=== PATIENT | female | born 1970 | race Caucasian/White ===

== ENCOUNTER 2016-06-11 16:45 | Inpatient (IN) | payer OTHER ==
[~2016-06-11] VITALS: Ht 157.5 cm; Wt 90.9 kg
[2016-06-11 17:15] VITALS: Ht 157.5 cm; Wt 90.9 kg
[2016-06-11 17:23] VITALS: BP 111/65; RESP 18
[2016-06-11] MEDS ORDERED: PRENAT PO (19:22)
[2016-06-11] MEDS: LACTATED RINGER'S 1,000 ML IV SCH (19:22)
--- NOTE | 2016-06-11 19:35 | HP ---
Date/Time of Note Date/Time of Note DATE: 06/11/16 TIME: 19:29 OB - History Hx of Present Free Text/Dictation 44 years old female referred from anesthesia clinic by the perinatology due to the short cervix at 33 weeks and 2 days of she is a 3 para 2 mother of 2 living children with a history of labor on her previous pregnancies at 35 weeks gestation. Chief Complaint: Short cervix 1.7 cm Estimated Due Date: Jul 28, 2016 : 3 Para: 2 Care: Limited Care Ultrasounds: Normal mid trimester US, Other (Today's ultrasound and perinatology cervical length 1.7 cm JACQUIE 14.6 estimated weight 2077 good cephalic presentation) Obstetrical Complications: None Past Family/Social History * Past Medical, Surgical, Family and Obstetric Histories reviewed from chart. Rubella: immune RPR/VDRL: Negative GBS Status: Unknown HBsAG: Unknown OB Admission Exam Vital Signs Vital Signs Vital Signs Date Time Temp Pulse Resp B/P Pulse Ox O2 Delivery O2 Flow Rate FiO2 06/11/16 17:23 98.0 18 111/65 Room Air NIR OTT MD Jun 11, 2016 19:35
[2016-06-11] MEDS: BETAMET NA PHOS/AC(6 MG/ML) 5ML INJ IM SCH (20:45)
[2016-06-12] MEDS: NIFEdipine 10 MG CAP PO SCH ×4 (00:04→18:02)
[2016-06-12] MEDS: LACTATED RINGER'S 1,000 ML IV SCH ×3 (03:22→20:17)
[2016-06-12] MEDS: MULTIVIT/MIN/FOLATE/IRON/PREN TAB PO SCH (09:43)
[2016-06-12] MEDS: FERROUS SULFATE (EC) 325 MG TAB PO SCH (09:43)
[2016-06-12] MEDS: DOCUSATE SODIUM 100 MG CAP PO SCH (09:43)
[2016-06-12 10:32] LABS: INR 1.01; PROTIME 13.3 Sec (12.2-14.2)
[2016-06-12 10:33] LABS: PARTIAL THROMBOPLASTIN TIME 26.3 Sec (25.0-35.0)
[2016-06-12 10:38] LABS: ALBUMIN 3.3 g/dl (3.3-4.9)
[2016-06-12 10:39] LABS: POTASSIUM 4.3 mmol/L (3.5-5.1)
[2016-06-12 10:41] LABS: ALBUMIN/GLOBULIN RATIO 0.97; BILIRUBIN,INDIRECT 0.6 mg/dl (0-1.1); BILIRUBIN,TOTAL 0.6 mg/dl (0.2-1.3); CREATININE 0.51 mg/dl (0.44-1.00); TOTAL PROTEIN 6.7 g/dl (6.1-8.1)
[2016-06-12 10:42] LABS: CALCIUM 8.6 mg/dl (8.4-10.2)
[2016-06-12 10:58] LABS: BASOPHILS % 0.2 % (0.0-2.0); HEMATOCRIT 34.7 % (37.0-47.0); HEMOGLOBIN 11.6 g/dl (12.0-16.0); LYMPHOCYTES # 1.1 10^3/ul (0.8-2.9); LYMPHOCYTES % 11.6 % (15.0-51.0); MEAN CORPUSCULAR HEMOGLOBIN 29.7 pg (29.0-33.0); MEAN CORPUSCULAR HGB CONC 33.3 g/dl (32.0-37.0); MEAN CORPUSCULAR VOLUME 89.1 fl (82.0-101.0); MEAN PLATELET VOLUME 10.8 fl (7.4-10.4); MONOCYTE # 0.2 10^3/ul (0.3-0.9); MONOCYTES % 1.7 % (0.0-11.0); NEUTROPHIL # 7.9 10^3/ul (1.6-7.5); NEUTROPHILS % 86.5 % (39.0-77.0); PLATELET COUNT 196 10^3/UL (140-440); RED CELL DISTRIBUTION WIDTH 14.9 % (11.5-14.5); UNCORRECTED WBC 9.1 10^3/ul (4.8-10.8); WHITE BLOOD COUNT 9.1 10^3/ul (4.8-10.8)
[2016-06-12 11:07] LABS: CONDITION 1; LH ANALYZER COMMENTS 1
[2016-06-12 11:11] LABS: ADD UMIC YES; URINE BILIRUBIN (Dip) NEGATIVE (NEGATIVE); URINE BLOOD (Dip) NEGATIVE (NEGATIVE); URINE COLOR LT. YELLOW (YELLOW); URINE GLUCOSE (Dip) NEGATIVE (NEGATIVE); URINE KETONES (Dip) 3+ (NEGATIVE); URINE LEUKOCYTE ESTERASE (Dip) 1+ (NEGATIVE); URINE NITRITE (Dip) NEGATIVE (NEGATIVE); URINE TOTAL PROTEIN (Dip) NEGATIVE (NEGATIVE); URINE UROBILINOGEN (Dip) 0.2 E.U./dL (0.1-1.0)
[2016-06-12 11:40] LABS: URINE RBCS 0-2 /HPF (0)
[2016-06-12 11:41] LABS: BACTERIA,URINE MODERATE; SQUAMOUS EPITHELIAL CELL,UR MODERATE
[2016-06-12] MEDS ORDERED: ACETAMINOPHEN 325 MG TAB PO PRN (12:30)
--- NOTE | 2016-06-12 13:51 | PN ---
Date/Time of Note Date/Time of Note DATE: 06/12/16 TIME: 13:48 OB Subjective Subjective Subjective Vital sign stable afebrile, tomorrow she will be 34 weeks, her abdomen is soft not complaining of any contractions that she can feel even though monitor shows some contractions she is on Procardia 20 mg 4 times daily. NIR OTT MD Jun 12, 2016 13:51
[2016-06-12] MEDS: BETAMET NA PHOS/AC(6 MG/ML) 5ML INJ IM SCH (20:48)
[2016-06-13] MEDS: LACTATED RINGER'S 1,000 ML IV SCH ×3 (03:48→21:14)
[2016-06-13] MEDS: NIFEdipine 10 MG CAP PO SCH ×4 (06:09→17:55)
[2016-06-13] MEDS: MULTIVIT/MIN/FOLATE/IRON/PREN TAB PO SCH (08:57)
[2016-06-13] MEDS: DOCUSATE SODIUM 100 MG CAP PO SCH (08:57)
[2016-06-13] MEDS: FERROUS SULFATE (EC) 325 MG TAB PO SCH (08:57)
--- NOTE | 2016-06-13 09:40 | RADRPT ---
PROCEDURE: Limited obstetric ultrasound CLINICAL INDICATION: Pain TECHNIQUE: Multiple transverse and longitudinal grayscale images of the pelvis were obtained del real sabdominally and transvaginally.. COMPARISON: 05/12/15 FINDINGS: The cervix is closed with a length of 1.8 cm. There is a single viable intrauterine gestation. Cardiac activity is present with 129 beats per min mechoopda. There is a vertex presentation. The placenta is posterior. There is no evidence for an abruption or placenta previa. RPTAT: AA IMPRESSION: Cervix length measures 1.8 cm. .Odilon Condon MD, Date Time Electronically viewed and signed by .Odilon Condon MD, on 06/13/2016 09:40 .S/
--- NOTE | 2016-06-13 13:01 | PN ---
Date/Time of Note Date/Time of Note DATE: 06/13/16 TIME: 12:58 OB Subjective Subjective Subjective Vital signs stable, resting in bed feels occasional some of the contraction today's ultrasound for cervical length 1.8 no change . We will continue expecting management NIR OTT MD Jun 13, 2016 13:01
--- NOTE | 2016-06-13 18:43 | CONS ---
DATE OF ADMISSION: 06/11/2016 DATE OF CONSULTATION: 06/13/2016 REFERRING PHYSICIAN: Linda Carvajal MD I was asked to talk to this mother who is 33.4 weeks in labor and was admitted on 06/11/2016. HISTORY OF PRESENT ILLNESS: Mother is a 45-year-old 3, para 2 with an EDC of 07/28/2016. Her blood type is O positive, RPR nonreactive. Mother received 2 doses of betamethasone on 06/11/2016 and 06/12/2016. She is on Procardia at the present time and contractions are infrequent. I spoke with mom regarding the being 33 and 1/2 weeks and with an estimated weight of 2076. I discussed with mother about the possibility of retained lung fluid and premature lung disease including respiratory distress syndrome and treatments including oxygen administration, possible CPAP administration and nasal IMV or intubation and surfactant administration if the 's oxygen requirement is high and has moderate RDS. Discussed risks and benefits of treatment as well as procedures. I also discussed about the risk of increased infection and monitoring for a CBC and blood cultures and sometimes to be treated with antibiotics depending on 's clinical course. I also discussed about risk of apnea of prematurity and hyperbilirubinemia, including phototherapy. Discussed about the to be started on p.o. feedings if the is able to nipple and to be on IV fluids or TPN and to be increased gradually to full feedings. I also discussed about feeding intolerance, poor feeding, gastroesophageal reflux and rare occurrence of NEC. I discussed about the benefits of breast milk and encouraged mother to pump breast milk. Mother states that she was told that the fetus is well. She has advanced maternal age. I also discussed about the survival of greater than 95% and the hospital stay of 2 to 3 weeks depending on the 's clinical course and ability to nipple , gain weight and maintain temperature. I reassured the mother about good prognosis. I also discussed about increased risk of neurodevelopmental delay in premature infants. As mother had no further questions, the discussion was concluded and she was reassured about good prognosis in infants at 33 and 1/2 weeks. Dictated By: RITA SILVA/YESENIA Conf#: [id number] DID#: [id number]
[2016-06-14] MEDS: NIFEdipine 10 MG CAP PO SCH ×4 (00:03→17:37)
[2016-06-14] MEDS: LACTATED RINGER'S 1,000 ML IV SCH (04:35)
[2016-06-14] MEDS: DOCUSATE SODIUM 100 MG CAP PO SCH (09:12)
[2016-06-14] MEDS: FERROUS SULFATE (EC) 325 MG TAB PO SCH (09:12)
[2016-06-14] MEDS: MULTIVIT/MIN/FOLATE/IRON/PREN TAB PO SCH (09:12)
[2016-06-15] MEDS: NIFEdipine 10 MG CAP PO SCH ×4 (00:09→17:40)
[2016-06-15] MEDS: MULTIVIT/MIN/FOLATE/IRON/PREN TAB PO SCH (08:39)
[2016-06-15] MEDS: DOCUSATE SODIUM 100 MG CAP PO SCH (08:39)
[2016-06-15] MEDS: FERROUS SULFATE (EC) 325 MG TAB PO SCH (08:39)
--- NOTE | 2016-06-15 10:07 | PN ---
Date/Time of Note Date/Time of Note DATE: 06/15/16 TIME: 10:00 OB Subjective Subjective Subjective Vital sign stable, there are occasional contractions but patient denies feeling , tomorrow she will be 34 weeks ,plan of discharge after 34 weeks of gestation discussed with the patient pending perinatology recommendation NIR OTT MD Jun 15, 2016 10:07
[2016-06-16] MEDS: NIFEdipine 10 MG CAP PO SCH ×3 (00:11→11:39)
[2016-06-16] MEDS: DOCUSATE SODIUM 100 MG CAP PO SCH (08:42)
[2016-06-16] MEDS: FERROUS SULFATE (EC) 325 MG TAB PO SCH (08:42)
[2016-06-16] MEDS: MULTIVIT/MIN/FOLATE/IRON/PREN TAB PO SCH (08:42)
--- NOTE | 2016-06-16 10:18 | RADRPT ---
PROCEDURE: US OB. CLINICAL INDICATION: Low JACQUIE , pain TECHNIQUE: Transabdominal views of the pelvis are available for review. COMPARISON: 06/13/2016 FINDINGS: There is a single intrauterine gestation in a vertex position. The heart rate is present at 156 bpm. The placenta is posterior. The JACQUIE measures 15.8 cm. RPTAT: AA IMPRESSION: Normal JACQUIE. .Odilon Condon MD, MD Date Time Electronically viewed and signed by .Odilon Condon MD, on 06/16/2016 10:18 .S/
[2016-06-16] MEDS ORDERED: PRO20 PO ×2 (12:10→12:11)
[2016-06-16] MEDS ORDERED: CEPH500C PO ×2 (12:16→12:17)
--- NOTE | 2016-06-16 15:01 | PN ---
Date/Time of Note Date/Time of Note DATE: 06/16/16 TIME: 14:52 OB Subjective Subjective Subjective Patient denies any abdominal pain, vaginal bleeding, LOF or decreased movement. Patient denies any dysuria, pain with bleeding or nausea, vomiting, fever or chills or any other complaint. OB Objective Objective Objective GA: A&O Abdomen: Soft, non tender, Gravid. No suprapubic tenderness, No CVA tenderness. NST: reactive, Cat 1 No contractions on the monitor. UA : > 100.000 Mixed maria del carmen. Urine culture is pending. OB Assessment/Plan Other Assessment: IUP at 34 weeks Admitted for contractions and noted to have short cervix S/p steriods x 2 doses and on Procardia No cervical change No evidence of PTL . stable now with oral procardia. UA mixed maria del carmen. > 100.000 urine culture pending Other plan: DC home with Keflex until final result is back Strict PTL precaution and kick counts discussed Follow up in 2-3 days with OB clinic, NEV if culture returns negative, can stop Antibiotic This has been discussed with the patient Modified bed rest and pelvic rest discussed with the patient and patient verbalized understanding. Continue procardia 20 mg QID RAMBO LEUNG MD Jun 16, 2016 15:01
== END 2016-06-16 12:30 | disposition home or self-care (01) | DRG 778 ==
LOC: OBG 16:45
PROVIDERS: ADMIT Obstetrics & Gynecology; ATTEND Obstetrics & Gynecology
DX: O60.03 Preterm labor without delivery, third trimester (principal); O26.873 Cervical shortening, third trimester; Z3A.33 33 weeks gestation of pregnancy
CPT/HCPCS: 76815; 76817; 80053; 81001; 81003; 85025; 85610; 85730; 86850; 86900; 86901; 87086; 87340; J0702; J7120

== ENCOUNTER 2016-06-26 10:53 | Outpatient (CLI) | payer OTHER ==
[~2016-06-26] VITALS: Ht 157.5 cm; Wt 92.0 kg
[~2016-06-26 10:53] MED LIST: CEPH500C PO; PRENAT PO; PRO20 PO
[2016-06-26 11:17] VITALS: Ht 157.5 cm; Wt 92.0 kg
[2016-06-26 11:18] VITALS: BP 110/66; PULSE 90; RESP 20
[2016-06-26 11:25] LABS: ADD UMIC YES; URINE BILIRUBIN (Dip) NEGATIVE (NEGATIVE); URINE BLOOD (Dip) NEGATIVE (NEGATIVE); URINE COLOR LT. YELLOW (YELLOW); URINE GLUCOSE (Dip) NEGATIVE (NEGATIVE); URINE KETONES (Dip) NEGATIVE (NEGATIVE); URINE LEUKOCYTE ESTERASE (Dip) 1+ (NEGATIVE); URINE NITRITE (Dip) NEGATIVE (NEGATIVE); URINE TOTAL PROTEIN (Dip) NEGATIVE (NEGATIVE); URINE UROBILINOGEN (Dip) 0.2 E.U./dL (0.1-1.0)
[2016-06-26 11:46] LABS: SQUAMOUS EPITHELIAL CELL,UR MODERATE; URINE RBCS NONE SEEN /HPF (0)
--- NOTE | 2016-08-31 16:34 | QN ---
Documentation Comment 35 weeks rule out labor NIR OTT MD August 31, 2016 16:34
== END 2016-06-26 12:20 | disposition home or self-care (01) ==
LOC: L-D 10:53 → OBT 10:53
PROVIDERS: ATTEND Obstetrics & Gynecology
DX: O47.03 False labor before 37 completed weeks of gestation, third trimester (principal); Z3A.35 35 weeks gestation of pregnancy
CPT/HCPCS: 81001; Z7500; 81003; G0463

== ENCOUNTER 2016-07-13 20:28 | Outpatient (CLI) | payer OTHER ==
[~2016-07-13] VITALS: Ht 157.5 cm; Wt 96.4 kg
[2016-07-13 20:45] VITALS: Ht 157.5 cm; Wt 96.4 kg
[2016-07-13 20:46] VITALS: BP 117/61; PULSE 92; RESP 18
[2016-07-13 21:31] LABS: ADD UMIC NO; URINE BILIRUBIN (Dip) NEGATIVE (NEGATIVE); URINE BLOOD (Dip) NEGATIVE (NEGATIVE); URINE COLOR LT. YELLOW (YELLOW); URINE GLUCOSE (Dip) NEGATIVE (NEGATIVE); URINE KETONES (Dip) 15 (NEGATIVE); URINE LEUKOCYTE ESTERASE (Dip) NEGATIVE (NEGATIVE); URINE NITRITE (Dip) NEGATIVE (NEGATIVE); URINE TOTAL PROTEIN (Dip) NEGATIVE (NEGATIVE); URINE UROBILINOGEN (Dip) 1.0 E.U./dL (0.1-1.0)
--- NOTE | 2016-07-13 22:40 | RADRPT ---
PROCEDURE: OB ultrasound for biophysical profile CLINICAL INDICATION: Biophysical profile. . TECHNIQUE: Multiple sonographic images of the pelvis were obtained. Transabdominal view of the gr avid uterus are available for review. The images were reviewed on a PACS workstation. COMPARISON: 06/16/2016, 06/28/2016 FINDINGS: Single intrauterine gestation. Presentation: Cephalic. Partially visualized placenta: Posterior breathing movement = 2/2 tone = 2/2 motion = 2/2 JACQUIE = 2/2 JACQUIE = 15.1 cm heart rate: 152 beats per minute IMPRESSION: Single intrauterine gestation. Biophysical profile 12/07 RPTAT: AADD .Luca Bartlett MD, MD Date Time Electronically viewed and signed by .Luca Bartlett MD, on 07/13/2016 22:39 .B/
--- NOTE | 2016-07-13 23:46 | QN ---
Documentation Comment Laborist NAVA pt 45 y.o. with an IUP at 37w6d with c/o contractions since 1900 every 1-5 minutes with pain at 6/10. No vaginal bleeding. No leaking. PMHx: had labor with a short cervix during this , per pt. PSHx: none. POBHx: x 2 at 36 weeks and 37 weeks. NKDA. BP 117/61 T=98.3 NST: baseline 140 bpm with accels to 180 bpm. No decels. UC's q 3-14 minutes. U/A all negative except for ketones. BPP 8/8 with an JACQUIE of 15.1, VTX presentation, posterior cx. CX: 50%/3 cm/-3 and cervical change after 2 hours of walking. A: IUP at 37 w6d. False labor. P: D/C home. Reviewed labor precautions with pt. JESSICA WHITE MD Jul 13, 2016 23:45
--- NOTE | 2016-07-13 23:46 | TRIAGE ---
OB Triage Datetime Report Generated by CPN: 07/13/2016 23:46 Datetime: 07/13/2016 23:20 Stage of : OB Triage Datetime: 07/13/2016 22:52 Vaginal Exam Dilatation (cms): 3.0 Effacement (%): 50 Station: -3 Exam By: Ericka DÍAZ RN Vaginal Bleeding: None Cervix, Consistency: Firm Cervix, Position: Posterior Presentation 'A': Cephalic Datetime: 07/13/2016 22:38 Stage of : OB Triage Datetime: 07/13/2016 21:00 Labor Evaluation Frequency: 1-5 Monitor Mode: External Duration (sec)2399: 30-120 Quality: Mild Pattern: Normal: <= 5 Contractions in 10 Minutes Resting Tone Kiefer: Relaxed Heart Rate FHR Baseline Rate: 145 Monitor Mode: External US FHR Baseline Changes: No Baseline Change Variability: Moderate 6-25 bpm Accelerations: 15X15 Decelerations: Variable Category: Category II Datetime: 07/13/2016 20:57 Vaginal Exam Dilatation (cms): 3.0 Effacement (%): 50 Station: -3 Exam By: HELEN Vaginal Bleeding: Scant Cervix, Consistency: Firm Cervix, Position: Posterior Datetime: 07/13/2016 20:37 Stage of : OB Triage Time of Arrival: 07/13/2016 20:21 EGA: 37.6 Arrived By: Ambulatory Arrived From: Home Chief Complaint: CONTRACTIONS Movement: Present Contractions: Irregular Time Contractions Began: 07/13/2016 19:10 Rupture of Membranes: Denies Vaginal Discharge: Denies Recent Sexual Intercouse: Denies Abdominal Trauma: Not Applicable Time Provider Notified: 07/13/2016 21:17 Provider Notified: DR WHITE Initial Plan: CALL PARAS CORADO Maternal Assessment Level of Consciousness: Fully Conscious DTR's/Clonus: DTRs 2+; No Clonus Headache: Denies Blurred Vision: No Respiratory Effort: Unlabored; Regular Rhythm; Equal Expansion Breath Sounds, Left: Clear and Equal Breath Sounds, Right: Clear and Equal Nausea/Vomiting: Denies RUQ Epigastric Pain: Denies Lower Extremities Edema: None Degree: None Upper Extremities Edema: None Degree: None Facial Edema: None Temperature Route: Oral Fall Risk Assessment History of Falling: (0) No Secondary Diagnosis: (0) No Ambulatory Aid: (0) Bedrest/Nurse Assist IV Therapy: (0) No Gait: (0) Normal/Bedrest/Immobile Mental Status: (0) Oriented to Own Ability Fall Score: 0 Fall Risk Score Definition: No Risk: No action required Monitor Mode: External Monitor Mode: External US Pain Assessment Pain Scale: 6 Pain Presence: Intermittent Pain Type: Contraction Pain Location: Abdomen; Back Datetime: 06/28/2016 13:24 EGA: 35.3 Datetime: 06/26/2016 11:12 EGA: 35.3 Datetime: 06/26/2016 11:09 Fall Score: 0 Fall Risk Score Definition: No Risk: No action required Datetime: 06/16/2016 12:23 EGA: 35.3 Datetime: 06/16/2016 07:35 Fall Score: 0 Fall Risk Score Definition: No Risk: No action required Datetime: 06/15/2016 19:50 Fall Score: 0 Fall Risk Score Definition: No Risk: No action required Datetime: 06/15/2016 07:23 Fall Score: 0 Fall Risk Score Definition: No Risk: No action required Datetime: 06/14/2016 19:39 Fall Score: 20 Fall Risk Score Definition: No Risk: No action required Datetime: 06/14/2016 07:45 Fall Score: 20 Fall Risk Score Definition: No Risk: No action required Datetime: 06/13/2016 19:30 Fall Score: 20 Fall Risk Score Definition: No Risk: No action required Datetime: 06/13/2016 07:35 Fall Score: 20 Fall Risk Score Definition: No Risk: No action required Datetime: 06/12/2016 19:20 Fall Score: 20 Fall Risk Score Definition: No Risk: No action required Datetime: 06/12/2016 07:35 Fall Score: 0 Fall Risk Score Definition: No Risk: No action required Datetime: 06/11/2016 19:30 Fall Score: 0 Fall Risk Score Definition: No Risk: No action required Datetime: 06/11/2016 17:54 Fall Score: 0 Fall Risk Score Definition: No Risk: No action required Datetime: 06/11/2016 17:52 EGA: 33.2
== END 2016-07-13 23:20 | disposition home or self-care (01) ==
LOC: OBT 20:28 → L-D 20:28 → OBT 23:20
PROVIDERS: ATTEND Obstetrics & Gynecology
DX: O60.03 Preterm labor without delivery, third trimester (principal); O09.523 Supervision of elderly multigravida, third trimester; Z3A.37 37 weeks gestation of pregnancy
CPT/HCPCS: 76818; 81003; 87086; Z7500; G0463

== ENCOUNTER 2016-07-15 00:57 | Inpatient (IN) | payer OTHER ==
[~2016-07-15] VITALS: Ht 157.5 cm; Wt 94.1 kg
[~2016-07-15 00:57] MED LIST changes: -CEPH500C PO; -PRO20 PO
[2016-07-15] MEDS ORDERED: FERR325C PO (02:03)
[2016-07-15 02:04] VITALS: BP 114/65; PULSE 78; RESP 18; Ht 157.5 cm; Wt 94.1 kg
[2016-07-15] MEDS ORDERED: CARBOPROST 250 MCG INJ IM PRN (02:30)
[2016-07-15] MEDS ORDERED: OXYTOCIN 30 UNITS/LR 500 ML IV PRN (02:30)
[2016-07-15] MEDS ORDERED: IBUPROFEN 600 MG TAB PO PRN (02:30)
[2016-07-15] MEDS ORDERED: BUTORPHANOL 2 MG INJ IV PRN (02:30)
[2016-07-15] MEDS ORDERED: MISOPROSTOL 200 MCG TAB PR PRN (02:30)
[2016-07-15] MEDS ORDERED: METHYLERGONOVINE 0.2 MG INJ IM PRN (02:30)
[2016-07-15] MEDS ORDERED: OXYTOCIN 30 UNITS/LR 500 ML IV SCH ×2 (02:30)
[2016-07-15] MEDS ORDERED: LIDOCAINE 1% (MPF) 30 ML INJ INJ PRN (02:30)
[2016-07-15] MEDS ORDERED: LACTATED RINGER'S 1,000 ML IV PRN (02:30)
[2016-07-15] MEDS: LACTATED RINGER'S 1,000 ML IV SCH ×2 (02:59→08:38)
[2016-07-15 03:03] LABS: ADD SCAN DIFF NO
[2016-07-15 03:07] LABS: BASOPHILS % 0.5 % (0.0-2.0); EOSINOPHILS # 0.1 10^3/ul (0.0-0.5); EOSINOPHILS % 1.5 % (0.0-7.0); HEMATOCRIT 35.7 % (37.0-47.0); HEMOGLOBIN 11.6 g/dl (12.0-16.0); LYMPHOCYTES # 1.8 10^3/ul (0.8-2.9); LYMPHOCYTES % 21.9 % (15.0-51.0); MEAN CORPUSCULAR HEMOGLOBIN 28.9 pg (29.0-33.0); MEAN CORPUSCULAR HGB CONC 32.5 g/dl (32.0-37.0); MEAN CORPUSCULAR VOLUME 88.8 fl (82.0-101.0); MEAN PLATELET VOLUME 12.1 fl (7.4-10.4); MONOCYTE # 0.7 10^3/ul (0.3-0.9); MONOCYTES % 8.1 % (0.0-11.0); NEUTROPHIL # 5.5 10^3/ul (1.6-7.5); NEUTROPHILS % 67.3 % (39.0-77.0); PLATELET COUNT 179 10^3/UL (140-415); RED BLOOD COUNT 4.02 10^6/ul (4.20-5.40); RED CELL DISTRIBUTION WIDTH 14.6 % (11.5-14.5); WHITE BLOOD COUNT 8.1 10^3/ul (4.8-10.8)
--- NOTE | 2016-07-15 03:14 | TRIAGE ---
OB Triage Datetime Report Generated by CPN: 07/15/2016 03:14 Datetime: 07/15/2016 03:00 Labor Evaluation Frequency: Irregular Monitor Mode: External Duration (sec)2399: 40-70 Quality: Moderate Pattern: Normal: <= 5 Contractions in 10 Minutes Resting Tone Higgins: Relaxed Heart Rate FHR Baseline Rate: 135 Monitor Mode: External US FHR Baseline Changes: No Baseline Change Variability: Moderate 6-25 bpm Accelerations: 15X15 Decelerations: None Category: Category I Datetime: 07/15/2016 02:52 Assessment Type: Admission Assessment Vaginal Bleeding: None Maternal Assessment Level of Consciousness: Fully Conscious DTR's/Clonus: DTRs 2+; No Clonus Headache: Denies Blurred Vision: No Respiratory Effort: Unlabored; Regular Rhythm; Equal Expansion Breath Sounds, Left: Clear and Equal Breath Sounds, Right: Clear and Equal Nausea/Vomiting: Denies RUQ Epigastric Pain: Denies Lower Extremities Edema: Bilateral Lower Extremities Degree: 1+ Upper Extremities Edema: None Degree: None Facial Edema: None Fall Risk Assessment History of Falling: (0) No Secondary Diagnosis: (0) No Ambulatory Aid: (0) Bedrest/Nurse Assist IV Therapy: (20) Yes Gait: (0) Normal/Bedrest/Immobile Mental Status: (0) Oriented to Own Ability Fall Score: 20 Fall Risk Score Definition: No Risk: No action required Pain Assessment Pain Scale: 7 Pain Presence: Intermittent Pain Type: Contraction Pain Location: Abdomen; Back Pain Goal: 2 Datetime: 07/15/2016 02:00 Labor Evaluation Frequency: Irregular Monitor Mode: External Duration (sec)2399: 40-60 Quality: Moderate Pattern: Normal: <= 5 Contractions in 10 Minutes Resting Tone Higgins: Relaxed Heart Rate FHR Baseline Rate: 135 Monitor Mode: External US Variability: Moderate 6-25 bpm Accelerations: 15X15 Decelerations: None Category: Category I Datetime: 07/15/2016 01:56 Vaginal Exam Dilatation (cms): 5.0 Effacement (%): 70 Station: -3 Exam By: WALT Alex Vaginal Bleeding: None Cervix, Consistency: Moderate Cervix, Position: Posterior Datetime: 07/15/2016 01:23 Stage of : OB Triage Assessment Type: Triage Maternal Assessment Level of Consciousness: Fully Conscious DTR's/Clonus: DTRs 2+; No Clonus Headache: Denies Blurred Vision: No Respiratory Effort: Unlabored; Regular Rhythm; Equal Expansion Breath Sounds, Left: Clear and Equal Breath Sounds, Right: Clear and Equal Nausea/Vomiting: Denies RUQ Epigastric Pain: Denies Lower Extremities Edema: Bilateral Lower Extremities Degree: 2+ Upper Extremities Edema: None Degree: None Facial Edema: None Temperature Route: Oral Fall Risk Assessment History of Falling: (0) No Secondary Diagnosis: (0) No Ambulatory Aid: (0) Bedrest/Nurse Assist IV Therapy: (0) No Gait: (0) Normal/Bedrest/Immobile Mental Status: (0) Oriented to Own Ability Fall Score: 0 Fall Risk Score Definition: No Risk: No action required Pain Assessment Pain Scale: 8 Pain Presence: Intermittent Pain Type: Cramping; Contraction Pain Location: Abdomen; Back Pain Relief Measures: Comfort Measures Datetime: 07/15/2016 01:20 Time of Arrival: 07/15/2016 00:57 EGA: 38.1 Arrived By: Wheelchair Arrived From: Home Chief Complaint: UCs Movement: Present Contractions: Regular Time Contractions Began: 07/14/2016 07:00 Contractions: q3-4mins Rupture of Membranes: Denies Vaginal Bleeding: None Vaginal Discharge: Present Abdominal Trauma: Not Applicable Patient Complaints: Contractions; Cramping; Back Pain Time Provider Notified: 07/15/2016 01:10 Provider Notified: Initial Plan: EFM x2, SVE Datetime: 07/15/2016 01:10 Stage of : OB Triage Datetime: 07/13/2016 20:37 EGA: 37.6 Fall Score: 0 Fall Risk Score Definition: No Risk: No action required Datetime: 06/28/2016 13:24 EGA: 35.3 Datetime: 06/26/2016 11:12 EGA: 35.3 Datetime: 06/26/2016 11:09 Fall Score: 0 Fall Risk Score Definition: No Risk: No action required Datetime: 06/16/2016 12:23 EGA: 35.3 Datetime: 06/16/2016 07:35 Fall Score: 0 Fall Risk Score Definition: No Risk: No action required Datetime: 06/15/2016 19:50 Fall Score: 0 Fall Risk Score Definition: No Risk: No action required Datetime: 06/15/2016 07:23 Fall Score: 0 Fall Risk Score Definition: No Risk: No action required Datetime: 06/14/2016 19:39 Fall Score: 20 Fall Risk Score Definition: No Risk: No action required Datetime: 06/14/2016 07:45 Fall Score: 20 Fall Risk Score Definition: No Risk: No action required Datetime: 06/13/2016 19:30 Fall Score: 20 Fall Risk Score Definition: No Risk: No action required Datetime: 06/13/2016 07:35 Fall Score: 20 Fall Risk Score Definition: No Risk: No action required Datetime: 06/12/2016 19:20 Fall Score: 20 Fall Risk Score Definition: No Risk: No action required Datetime: 06/12/2016 07:35 Fall Score: 0 Fall Risk Score Definition: No Risk: No action required Datetime: 06/11/2016 19:30 Fall Score: 0 Fall Risk Score Definition: No Risk: No action required Datetime: 06/11/2016 17:54 Fall Score: 0 Fall Risk Score Definition: No Risk: No action required Datetime: 06/11/2016 17:52 EGA: 33.2
[2016-07-15 03:16] LABS: INR 0.98
[2016-07-15 03:17] LABS: PARTIAL THROMBOPLASTIN TIME 24.5 Sec (25.0-35.0)
[2016-07-15] MEDS ORDERED: FENTAnyl 2MCG/ML-ROPIV 0.2% 100 ML ONE (09:30)
--- NOTE | 2016-07-15 11:20 | HP ---
Date/Time of Note Date/Time of Note DATE: 07/15/16 TIME: 11:16 OB - History Hx of Present Free Text/Dictation 44 years old female 3 4 at EDC July 28, 2016 admitted to [facility] at 38 weeks and 1 day in active labor, pelvic examination on admission cervix 5 cm dilated 70% effaced vertex at -3 station contractions good quality less than 5 minutes apart Estimated Due Date: Jul 28, 2016 : 3 Para: 2 Care: Good Care Ultrasounds: Normal mid trimester US Obstetrical Complications: None Past Family/Social History * Past Medical, Surgical, Family and Obstetric Histories reviewed from chart. Rubella: immune RPR/VDRL: Negative GBS Status: Negative HBsAG: Negative OB Admission Exam Vital Signs Vital Signs Vital Signs Date Time Temp Pulse Resp B/P Pulse Ox O2 Delivery O2 Flow Rate FiO2 07/15/16 02:04 98.6 78 18 114/65 Room Air Physical Exam HEENT: WNL Heart: Rhythm Normal Abdomen: WNL Extremities: Normal Reflexes: Normal Cervical Dilatation: 5cm Effacement: 75% Membranes: Intact Heart Rate: 130's Accelerations: Accelerations Present Decelerations: No Decelerations Varibility: Marked Contractions on Admission: 6-10 Minutes Apart Intensity: Moderate Last 72 hours Lab Results CBC & BMP 07/15/16 02:45 NIR OTT MD Jul 15, 2016 11:20
--- NOTE | 2016-07-15 11:24 | LDN ---
Date/Time of Note Date/Time of Note DATE: 07/15/16 TIME: 11:21 Delivery Summary Normal spontaneous vaginal delivery of a baby girl from OA position cord was clamped after stopped pulsation placenta spontaneous expulsion inspected complete patient sustained small first degree laceration repair with 3-0 chromic catgut Placenta Delivered: Spontaneously Meconium: none Perineum intact?: No Sponge & Needle done & correct: Yes All needle counts correct: Yes Any foreign bodies felt in the: No Problems: Infant Delivery Information Sex Sex: female Apgars 1 Minute: 8 5 Minute: 9 Suctioning Nose & mouth suctioned at sun: Yes Delee suction performed: No Umbilical Cord Umbilical cord with: 3 Vessels Cord presentations: nuchal cord Cord Blood was obtained: Yes NIR OTT MD Jul 15, 2016 11:24
[2016-07-15 14:15] VITALS: BP 122/60; PULSE 70; RESP 18
[2016-07-15] MEDS: OXYTOCIN 30 UNITS/LR 500 ML IV SCH ×2 (14:15→19:19)
[2016-07-15] MEDS ORDERED: LANOLIN 7 GM TUBE TOP PRN (14:30)
[2016-07-15] MEDS ORDERED: BENZOCAINE 20% 56 ML SPRAY TOP PRN (14:30)
[2016-07-15] MEDS ORDERED: ACETAMINOPHEN 325 MG TAB PO PRN (14:30)
[2016-07-15] MEDS ORDERED: DIBUCAINE 1% 30 GM OINT PR PRN (14:30)
[2016-07-15] MEDS ORDERED: WITCH HAZEL/GLYCERIN PAD PR PRN (14:30)
[2016-07-15] MEDS ORDERED: ACETAMINOPHEN/CODEINE #3 TAB PO PRN ×2 (14:30)
[2016-07-15] MEDS ORDERED: OXYCODONE/ASPIRIN (4.88/325) TAB PO PRN ×2 (14:30)
[2016-07-15] MEDS ORDERED: ONDANSETRON 4 MG INJ IV PRN ×2 (14:30→17:30)
[2016-07-15 14:45] VITALS: BP 124/68; PULSE 68; RESP 18
[2016-07-15 15:00] VITALS: BP 119/64; PULSE 71; RESP 18
[2016-07-15] MEDS: IBUPROFEN 600 MG TAB PO SCH (17:15)
[2016-07-15] MEDS ORDERED: FENTAnyl 2MCG/ML-ROPIV 0.2% 100 ML BAG EPI SCH (17:30)
[2016-07-15] MEDS ORDERED: NALOXONE (0.4 MG/ML) INJ IV PRN (17:30)
[2016-07-15] MEDS ORDERED: DIPHENHYDRAMINE 50 MG INJ IV PRN (17:30)
[2016-07-15 19:50] VITALS: BP 104/53; PULSE 68; RESP 18
[2016-07-15] MEDS: SENNA/DOCUSATE NA (8.6MG/50MG) TAB PO SCH (20:52)
[2016-07-16] VITALS: BP 110/59; RESP 18
[2016-07-16] MEDS: IBUPROFEN 600 MG TAB PO SCH ×4 (00:26→18:09)
[2016-07-16 04:00] VITALS: BP 86/55; PULSE 60; RESP 18
[2016-07-16 07:59] LABS: ADD SCAN DIFF NO
[2016-07-16 08:14] LABS: BASOPHILS % 0.4 % (0.0-2.0); EOSINOPHILS # 0.1 10^3/ul (0.0-0.5); EOSINOPHILS % 1.1 % (0.0-7.0); HEMATOCRIT 33.6 % (37.0-47.0); HEMOGLOBIN 10.9 g/dl (12.0-16.0); LYMPHOCYTES # 1.9 10^3/ul (0.8-2.9); LYMPHOCYTES % 22.4 % (15.0-51.0); MEAN CORPUSCULAR HEMOGLOBIN 29.1 pg (29.0-33.0); MEAN CORPUSCULAR HGB CONC 32.4 g/dl (32.0-37.0); MEAN CORPUSCULAR VOLUME 89.6 fl (82.0-101.0); MEAN PLATELET VOLUME 12.1 fl (7.4-10.4); MONOCYTE # 0.6 10^3/ul (0.3-0.9); MONOCYTES % 6.9 % (0.0-11.0); NEUTROPHIL # 5.7 10^3/ul (1.6-7.5); NEUTROPHILS % 68.7 % (39.0-77.0); PLATELET COUNT 160 10^3/UL (140-415); RED BLOOD COUNT 3.75 10^6/ul (4.20-5.40); RED CELL DISTRIBUTION WIDTH 14.6 % (11.5-14.5); WHITE BLOOD COUNT 8.3 10^3/ul (4.8-10.8)
[2016-07-16 08:15] VITALS: BP 97/43; PULSE 59; RESP 18
[2016-07-16] MEDS: SENNA/DOCUSATE NA (8.6MG/50MG) TAB PO SCH ×2 (09:37→21:51)
--- NOTE | 2016-07-16 12:54 | PN ---
Date/Time of Note Date/Time of Note DATE: 07/16/16 TIME: 12:53 OB Subjective Subjective Subjective day 1 Afebrile abdomen soft uterus firm lochia normal extremity normal ambulation recommended. Laboratory Tests Test 07/16/16 07:25 Basophils # 0.010^3/ul Basophils % 0.4% Eosinophils # 0.110^3/ul Eosinophils % 1.1% Hematocrit 33.6% Hemoglobin 10.9g/dl Lymphocytes # 1.910^3/ul Lymphocytes % 22.4% Mean Corpuscular Hemoglobin 29.1pg Mean Corpuscular Hemoglobin Concent 32.4g/dl Mean Corpuscular Volume 89.6fl Mean Platelet Volume 12.1fl Monocytes # 0.610^3/ul Monocytes % 6.9% Neutrophils # 5.710^3/ul Neutrophils % 68.7% Nucleated Red Blood Cells # 0.010^3/ul Nucleated Red Blood Cells % 0.0/100WBC Platelet Count 16631^3/UL Red Blood Count 3.7510^6/ul Red Cell Distribution Width 14.6% White Blood Count 8.310^3/ul Current Medications Medications (Trade) Dose Ordered Sig/Julia Route PRN Reason Start Time Stop Time Status Last Admin Dose Admin Lactated Ringer's (Lr) 1,000 ml @ 125 mls/hr Q8H IV 07/15/16 02:07 07/15/16 14:18 DC 07/15/16 08:38 Butorphanol Tartrate (Stadol) 2 mg Q2H PRN IV PAIN 07/15/16 02:30 07/15/16 14:18 DC Lidocaine 30 ml 30 ml ONCE PRN INJ EPISIOTOMY/TEARING 07/15/16 02:30 07/15/16 14:18 DC Oxytocin/Lactated Ringer's 500 ml @ 125 mls/hr ONCE -MAY REPEAT X1 IV 07/15/16 02:30 07/15/16 14:18 DC 07/15/16 11:39 Oxytocin/Lactated Ringer's 500 ml @ 125 mls/hr ONCE IV 07/15/16 02:30 07/15/16 14:18 DC Ibuprofen 600 mg 600 mg ONCE PRN PO Mild Pain (Pain Score 1-3) 07/15/16 02:30 07/15/16 14:18 DC 07/15/16 13:28 Lactated Ringer's 1,000 ml @ 2,000 mls/hr Q30M PRN IV PRE-EPIDURAL BOLUS 07/15/16 02:30 07/15/16 14:18 DC Oxytocin/Lactated Ringer's 500 ml @ 0 mls/hr ONCE PRN IV For Hemorrhage Management 07/15/16 02:30 07/15/16 14:18 DC 07/15/16 08:37 Methylergonovine Maleate (Methergine) 0.2 mg ONCE PRN IM VAGINAL BLEEDING 07/15/16 02:30 07/15/16 14:19 DC Carboprost Tromethamine (Hemabate) 250 mcg ONCE PRN IM VAGINAL BLEEDING 07/15/16 02:30 07/15/16 14:18 DC Misoprostol 1000 mcg 1,000 mcg ONCE PRN NM VAGINAL BLEEDING 07/15/16 02:30 07/15/16 14:19 DC Fentanyl/ Ropivacaine 100 ml @ ud STK-MED ONCE .ROUTE 07/15/16 09:30 07/15/16 09:31 DC Oxytocin/Lactated Ringer's 500 ml @ 125 mls/hr Q4H IV 07/15/16 14:15 07/15/16 22:14 DC 07/15/16 19:19 Ibuprofen (Motrin) 600 mg Q6 PO 07/15/16 18:00 07/16/16 11:24 Acetaminophen (Tylenol Tab) 650 mg Q4H PRN PO PAIN LEVEL 1-5 07/15/16 14:30 Acetaminophen/ Codeine Phosphate (Tylenol No.3) 1 tab Q4H PRN PO PAIN LEVEL 1-5 07/15/16 14:30 Acetaminophen/ Codeine Phosphate (Tylenol No.3) 2 tab Q4H PRN PO PAIN LEVEL 6-10 07/15/16 14:30 Oxycodone/Aspirin (Percodan) 1 tab Q3H PRN PO PAIN LEVEL 1-5 07/15/16 14:30 Oxycodone/Aspirin (Percodan) 2 tab Q3H PRN PO PAIN LEVEL 6-10 07/15/16 14:30 Ondansetron HCl (Zofran Inj) 4 mg Q6H PRN IV NAUSEA AND/OR VOMITING 07/15/16 14:30 Senna/Docusate Sodium (Senokot-S) 1 tab BID PO 07/15/16 21:00 07/16/16 09:37 Witch Shreya/ Glycerin (Tucks Pads) 1 pad BEDSIDE MEDICATION PRN NM HEMORRHOID/EPISIOTMY PAIN 07/15/16 14:30 07/15/16 14:55 Benzocaine (Dermoplast [place]) 1 spray BEDSIDE MEDICATION PRN TOP HEMORRHOID/EPISIOTMY PAIN 07/15/16 14:30 07/15/16 14:55 Dibucaine (Nupercainal) 1 applic BEDSIDE MEDICATION PRN NM HEMORRHOID/EPISIOTMY PAIN 07/15/16 14:30 Lanolin (Wbw-G-Pvygtn) 1 applic BEDSIDE MEDICATION PRN TOP BEDSIDE FOR AMANDA TO NIPPLES 07/15/16 14:30 07/15/16 14:56 Measles/Mumps/ Rubella Vaccine Live (Mmr Ii Vaccine) 0.5 ml ONCE ONCE SC* 07/17/16 09:00 07/17/16 09:01 Naloxone HCl (Narcan) 0.1 mg Q2M PRN IV FOR RESP RATE 8 OR LESS 07/15/16 17:30 07/16/16 17:29 Diphenhydramine HCl (Benadryl) 25 mg Q6H PRN IV ITCHING 07/15/16 17:30 07/16/16 17:29 Ondansetron HCl (Zofran Inj) 4 mg Q6H PRN IV NAUSEA AND/OR VOMITING 07/15/16 17:30 07/16/16 17:29 Fentanyl/ Ropivacaine 100 ml EPIDURAL INFUSION EPI 07/15/16 17:30 07/15/16 17:41 NIR OLIVA MD Jul 16, 2016 12:54
[2016-07-16 16:00] VITALS: BP 87/45; PULSE 67; RESP 18
[2016-07-16 19:45] VITALS: BP 114/61; PULSE 69; RESP 18
[2016-07-17] MEDS: IBUPROFEN 600 MG TAB PO SCH ×3 (00:04→12:20)
[2016-07-17 04:46] VITALS: BP 107/57; PULSE 59; RESP 18
[2016-07-17 08:00] VITALS: BP 107/63; PULSE 57; RESP 18
[2016-07-17] MEDS: SENNA/DOCUSATE NA (8.6MG/50MG) TAB PO SCH (09:00)
[2016-07-17] MEDS ORDERED: MEASLES,MUMPS,RUBELLA VACCINE INJ SC* ONE (09:00)
--- NOTE | 2016-07-17 10:04 | PN ---
Date/Time of Note Date/Time of Note DATE: 07/17/16 TIME: 10:01 OB Subjective Subjective Subjective Vital signs stable, has been afebrile over 36 hours currently on Zosyn, cultures urine and blood negative, generally feels better more alert and active we will continue Zosyn till am plan of possible discharge a.mNIR Thompson MD Jul 17, 2016 10:03
--- NOTE | 2016-07-17 10:11 | PD.PPDC ---
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
--- NOTE | 2016-07-17 10:13 | DS ---
Date/Time of Note Date/Time of Note DATE: 07/17/16 TIME: 10:11 Obstetrical Discharge Record Final Diagnosis Final Diagnosis: Term delivered Vaginal Delivery Obstetrical Delivery: Spontaneous Condition on Discharge Physical Assessment Last Vitals: Day 2 normal delivery Afebrile abdomen soft uterus lochia normal extremity discharged home with follow -up instruction to be seen at the clinic in 2 weeks Voiding: Yes Bowel Movement: Yes Breast: Soft, non-tender, Filling Fundus: Firm Calf Tenderness: No Patient Condition: Good NIR OTT MD Jul 17, 2016 10:13
== END 2016-07-17 17:00 | disposition home or self-care (01) | DRG 775 ==
LOC: OBT 00:57 → L-D 01:02 → OBT 02:00 → PP1 13:56
PROVIDERS: ADMIT Obstetrics & Gynecology; ATTEND Obstetrics & Gynecology
PROC: 10E0XZZ Delivery of Products of Conception, External Approach (ICD-10-PCS; principal; 2016-07-15)
PROC: 0HQ9XZZ Repair Perineum Skin, External Approach (ICD-10-PCS; 2016-07-15)
DX: O70.0 First degree perineal laceration during delivery (principal); O09.523 Supervision of elderly multigravida, third trimester; Z3A.38 38 weeks gestation of pregnancy; Z37.0 Single live birth
CPT/HCPCS: 36415; 62319; 85025; 85610; 85730; 86592; 86900; 86901; 87340; G0463; J2590; J3010; J7120